=== PATIENT | male | born 1980 | race Caucasian/White ===

== ENCOUNTER 2017-07-29 09:16 | Outpatient (CLI) | payer MEDICARE, OTHER | END 2017-07-29 09:18 | LOC: LAB 09:16 | DX: Z79.899 Other long term (current) drug therapy (principal) | CPT/HCPCS: 36415; 80061; 83036 ==

== ENCOUNTER 2018-09-30 10:20 | Outpatient (CLI) | payer MEDICARE, OTHER | END 2018-09-30 10:22 | LOC: LAB 10:20 | DX: Z79.899 Other long term (current) drug therapy (principal) | CPT/HCPCS: 36415; 80061; 83036 ==